=== PATIENT | male | born 1985 | race Caucasian/White ===

== ENCOUNTER 2022-10-03 19:19 | Emergency (ER) | payer OTHER ==
[~2022-10-03] VITALS: Ht 175.3 cm; Wt 85.7 kg
[2022-10-03 19:59] VITALS: BP 135/66; TEMP 98; O2SAT 97
== END 2022-10-03 20:02 | disposition home or self-care (01) ==
LOC: ER 19:27
DX: S63.610A Unspecified sprain of right index finger, initial encounter (principal); X58.XXXA Exposure to other specified factors, initial encounter; Y93.89 Activity, other specified; Y92.89 Other specified places as the place of occurrence of the external cause; Y99.8 Other external cause status